=== PATIENT | male | born 1945 | race Caucasian/White ===

== ENCOUNTER 2017-03-22 19:32 | Emergency (ER) | payer MEDICARE ==
[~2017-03-22] VITALS: Ht 198.1 cm; Wt 132.7 kg
--- NOTE | 2017-03-22 19:56 | ED.REPORT ---
HPI-Trauma Minor / Fall Date of Service Mar 22, 2017 ED Provider: Vladimir Cook MD Pt is a 71 year old male with a history of alcohol abuse, DM, hyperlipidemia, lower extremity neuropathy, and HTN who presents to the ED via EMS complaining of right shoulder pain s/p falling onset tonight at the [place] while drinking alcohol. He reports "seeing stars" and losing consciousness prior to the fall. He states he normally has 5 drinks per day for 4 days/week. Additional symptoms include elbow and nose pain. He denies chest pain, SOB, neck pain, abdominal pain, cough, nausea, or vomiting. Pt reports episodes of sudden LE weakness and collapse unrelated to his drinking habits in the past. He takes 5 mg of Lisinopril every morning as his only reported blood pressure medication. Nursing Notes Stated Complaint: GLF AND RT SHOULDER PAIN Nursing Notes Reviewed: Yes Allergies: Coded Allergies: No Known Allergies (Unverified , 03/22/17) General Time Seen by MD: 19:55 Chief Complaint Fall Hx Obtained From: Patient, Spouse Arrived By: Ambulance Onset Occurred: 1 - 4 hours ago Caused by: Fall on ground Location: Shoulder right Quality: Painful Severity: Current: Severe Severity: Maximum: Severe Recent Healthcare: No recent doctor visit, No recent hospitalization Similar Sx Previous: No Past Medical History Past Medical History Reports: Diabetes mellitus, Hyperlipidemia, Hypertension Smoking History Never Smoker Social History Hx of alcohol abuse [place] Alcohol Use: 3-5 per day Other Social History: Good social support Ambulatory Status Independent Review of Systems Elbow pain Shoulder pain Nose pain Respiratory: Denies: Non-productive cough, Prod cough, clear, Shortness of breath Musculoskeletal: Denies: Neck pain Complete sys rev & neg: except as marked. Cardiovascular: Denies: Chest pain GI: Denies: Abdominal pain, Nausea, Vomiting Physical Exam Initial Vital Signs Vital Signs (First) Date Time Temp Pulse Resp B/P Pulse Ox O2 Delivery O2 Flow Rate FiO2 03/22/17 20:02 36.7 113 20 113/72 95 Room Air Initial VS: Reviewed Skin: Warm, Dry, No cyanosis Neurologic: Alert, Oriented, Nonfocal Psychiatric: Mood/affect normal, Behavior normal, Normal thought content General/Constitutional: Awake, Alert Neck: Atraumatic, Supple, Full range of motion Head / Eyes: Atraumatic, Normocephalic Abrasion over forehead Ears/Nose/Throat: Abrasion over nose No crepitus Bones intact Mucus membranes dry Respiratory / Chest: Atraumatic, Breath sounds NL, Breath sounds = bilat, No respiratory distress Cardiovascular: Regular rhythm Tachycardia Heart sounds diminshed Trace lower leg edema Upper Extremity / MS: Full range of motion, No deformity, Neurologic intact, Vascular intact Non-tender L elbow 2 cm laceration over L elbow R shoulder with visible deformity. TTP, unable to examine ROM due to pain. Interpretation & Diagnostics Lab Results Interpretation Result Diagram: 03/22/17201403/22/17 2015 Test 03/22/17 20:15 White Blood Count 4.7th/mm3 (3.8-10.1) Red Blood Count 4.25mil/mm3 (4.40-5.80) Hemoglobin 13.8g/dL (13.8-17.2) Hematocrit 41.0% (41.0-50.0) Mean Corpuscular Volume 96.5fL (81-100) Mean Corpuscular Hemoglobin 32.5pg (27.0-35.0) Mean Corpuscular Hemoglobin Concent 33.7% (32.0-37.0) Red Cell Distribution Width 12.1% (12.3-15.4) Platelet Count 214bil/L (150-400) Neutrophils (%) (Auto) 69.3% (40-74) Lymphocytes (%) (Auto) 16.0% (14-46) Monocytes (%) (Auto) 9.4% (4-12) Eosinophils (%) (Auto) 4.7% (0-5) Basophils (%) (Auto) 0.4% (0-3) Prothrombin Time 9.9sec (8.1-12.5) Prothromb Time International Ratio 0.93ratio Sodium Level 136mEq/L (134-144) Potassium Level 4.4mEq/L (3.5-5.2) Chloride Level 97mEq/L (97-108) Carbon Dioxide Level 19mmol/L (18-29) Blood Urea Nitrogen 22mg/dL (8-27) Creatinine 0.84mg/dL (0.76-1.27) Estimat Glomerular Filtration Rate 96mL/min (>59) Glucose Level 178mg/dL (60-99) Calcium Level 9.2mg/dL (8.5-10.1) Total Bilirubin 0.4mg/dL (0.0-1.2) Aspartate Amino Transf (AST/SGOT) 26U/L (0-50) Alanine Aminotransferase (ALT/SGPT) 23U/L (0-44) Alkaline Phosphatase 78U/L (25-160) Troponin T < 0.010ug/L (0.0-0.011) Total Protein 6.5g/dL (6.4-8.4) Albumin 3.8g/dL (3.4-5.0) Alcohols 170mg/dL (0-10) ECG Interpretation ECG Interpretation: Impression: Sinus tachycardia, rate 106 RBBB and LAFB No acute ST changes No previous available for comparison Time: 20:19 Interpreted by: ED physician X-Ray Chest Interpretation Chest Xray Interpretation: IMPRESSION: No radiographic evidence of acute cardiopulmonary pathology. Partially visualized right shoulder dislocation. Dictated by: Issac Hyatt M.D. on 03/22/2017 at 21:01 View: Portable, 1 view Interpretation / Wet Read by: Interpret - Radiologist X-Ray Interpretation Xray Interpretation: IMPRESSION: Anterior-inferior right shoulder dislocation. No definite associated fractures. Recommend postreduction radiographs. Dictated by: Issac Hyatt M.D. on 03/22/2017 at 21:02 X-Ray Ordered: Shoulder right Interpretation / Wet Read by: Interpret - Radiologist Xray Interpretation: Post-reduction Xray shows successful shoulder reduction X-Ray Ordered: Shoulder right Interpretation / Wet Read by: Wet read ED physician CT Head Interpretation IMPRESSION: No CT evidence of acute intracranial pathology. Dictated by: Issac Hyatt M.D. on 03/22/2017 at 21:31 Study: Head CT no contrast Interpretation / Wet Read by: Interpret - Radiologist CT C-Spine Interpretation IMPRESSION: No CT evidence of acute cervical spine pathology. Extensive degenerative change as described above. Dictated by: Issac Hyatt M.D. on 03/22/2017 at 21:33 Study type: CT no contrast Interpretation / Wet Read by: Interpret - Radiologist Procedures Laceration Management Time: 23:38 Procedure Performed by: ED physician Consent / Setup / Site Prep: Consent from patient, Time-out performed, Hand hygiene observed, Stand sterile technique Location of Wound: 2.5 cm laceration on L elbow Local Anesthesia: Lidocaine w epi 1% Repair Skin: ___ O (2O), Nylon # Sutures - Skin: 2 Suture Technique: Mattress Post-Procedure / Complications: Antibiotic oint applied, Dressing applied, No complications, Condition improved, Tolerated procedure well, Patient stable Proced Mod Sedation/Analgesia Time: 22:34 Procedure Performed by: ED physician Consent / Setup: Consent from patient, Time-out performed, Hand hygiene observed, Stand sterile technique, Head of bed at 30-60 deg Indication: Shoulder reduction Preparation: site monitor applied, Pulse oximeter applied, Constant attendance, IV access established, Supplemental oxygen, Procedure explained, Suction available, End tidal CO2 mon applied Airway Exam: Normal facial anatomy CVS/Resp Exam: Normal breath sounds Neuro Exam: Alert, Responsive Sedation: Sedation: Propofol ASA Classification: 3 sev disease/not incap Response During Procedure: Handled secretions adeq, Maintained airway well, Oxygenation stable, Sedation appropriate, Vital signs stable Complications During/After: None Mental Status After Procedure: Alert, Oriented X3 Post-Procedure: Alert prior to discharge, Ambulatory with assist Attestation: I performed procedure, I performed sedation Reduction Dislocated Shoulder Initial procedure unsuccessful shoulder reduction. Second attempt showed successful reduction, no apparent fracture. Time: 22:34 Procedure Performed by: ED physician Consent / Setup: Consent from patient, Consent from spouse, Time-out performed , Oxygen administered, Pulse oximeter applied, site monitor applied, Hand hygiene observed, Stand sterile technique Procedural Sedation/Analgesia: Sedation: Propofol Which Shoulder and Technique: Right shoulder Neurovascular: Intact pre-procedure, Intact post-procedure Post-Procedure / Complications: Reduced per examination, Procedure successful, Condition improved, Tolerated procedure well, Patient stable Re-Eval/Medical Decision Med Decision/Clinical Course 71 yo intoxicated male here s/p GLF resulting in R shoulder dislocation, significant nasal abrasion and L elbow laceration. Head and neck CTs without acute injury. R shoulder was reduced after uncomplicated conscious sedation on second attempt. Fall was unwitnessed and pt intoxicated however he thinks he may have passed out and does not believe his fall was caused by etoh. Cardiac workup here shows no acute ST changes on EKG and troponin negative. No previous EKG for comparison. Initially pt was mildly tachycardic, but this resolved after fluids and pain medication. I advised pt to f/u with this PCP next week to consider further syncope evaluation possibly including and echocardiogram. No arrhythmias seen here on tele. It is likely that etoh led to all of his sx tonight. Source of Hx: Old records Re-Evaluation/Progress #1: Time of Eval: 22:33 Re-Evaluation/Progress Note: Performed reduction of right shoulder dislocation. Re-Evaluation/Progress #2: Time of Eval: 23:40 Re-Evaluation/Progress Note: Performed laceration management on L elbow. Counseled Regarding: Diagnosis, Lab results, Need for follow-up, When/why to return to ED Discharge & Departure Impression: Primary Impression: Fall from ground level Additional Impressions: Alcohol intoxication Complication of substance-induced condition: with unspecified complication Qualified Code: F10.129 - Alcohol abuse with intoxication, unspecified Dislocation of right shoulder joint Encounter type: initial encounter Qualified Code: S43.004A - Unspecified dislocation of right shoulder joint, initial encounter Laceration of left elbow Encounter type: initial encounter Qualified Code: S51.012A - Laceration without foreign body of left elbow, initial encounter Loss of consciousness Nasal abrasion Encounter type: initial encounter Qualified Code: S00.31XA - Abrasion of nose, initial encounter Tachycardia Disposition: Home Discharge Condition All VS Reviewed: Yes Condition: Stable Additional Instructions: Thank you for entrusting us with your care tonight. Please schedule an appointment on Friday with orthopedics next week. You should wear your shoulder sling until you see orthopedics. Use Neosporin for all of your cuts. Your sutures will need to be removed in two weeks. Keep sutures dry for 24 hours. Use Percocet as needed for shoulder pain. Do not drink alcohol and take Percocet at the same time. Do not drive while taking Percocet. Return to the ER for new or worsening symptoms. Referrals: OTHER,PHYSICIAN (PCP) (Family) Scribe Attestation Portions of this note were transcribed by Jennifer Hutchinson and Amparo Acharay. I, Dr. Cook, personally performed the history, physical exam and medical decision-making; I reviewed and confirmed the accuracy of the information in the transcribed note. Signed by: Betty Lee, 03/22/17. Geovany Cook DO Mar 22, 2017 19:56 Jennifer Hutchinson Mar 22, 2017 20:21 AMPARO ACHARYA Mar 22, 2017 21:44
[2017-03-22] MEDS ORDERED: Ondansetron 2 mg/mL 2 mL Inj IVPUSH PRN (20:00)
[2017-03-22 20:02] VITALS: BP 113/72; PULSE 113; RESP 20; O2SAT 95
[2017-03-22] MEDS: HYDROmorphone 0.5 mg/0.5 mL iSecure Syringe IVPUSH PRN ×4 (20:34→21:42)
[2017-03-22 20:41] LABS: BASOPHILS % (AUTO) 0.4 % (0-3); EOSINOPHILS % (AUTO) 4.7 % (0-5); MONOCYTES % (AUTO) 9.4 % (4-12); Mean Corpuscular Hemoglobin 32.5 pg (27.0-35.0); Mean Corpuscular Volume 96.5 fL (81-100); NEUTROPHILS % (AUTO) 69.3 % (40-74); Platelet Count 214 bil/L (150-400)
[2017-03-22 20:52] LABS: INR 0.93 ratio
[2017-03-22] MEDS ORDERED: 0.9% Sodium Chloride 1,000 ML IV ONE ×2 (20:54→20:55)
--- NOTE | 2017-03-22 21:04 | DRSVH ---
PROCEDURE: X-RAY CHEST ONE VIEW, PORTABLE ([id number]) INDICATIONS: fall TECHNIQUE: One view of the chest was acquired. COMPARISON: None. FINDINGS: Surgical changes and devices: None. Lungs and pleura: No pleural effusions or pneumothorax. Lungs are clear. Mediastinum: Mediastinal contours appear normal. Heart size is normal. Bones and chest wall: Partially visualized right shoulder dislocation.. Overlying soft tissues appea r unremarkable. IMPRESSION: No radiographic evidence of acute cardiopulmonary pathology. Partially visualized right shoulder dislocation. Dictated by: Issac Hyatt M.D. on 03/22/2017 at 21:01 Approved by: Issac Hyatt M.D. on 03/22/2017 at 21:02
--- NOTE | 2017-03-22 21:05 | DRSVH ---
PROCEDURE: X-RAY RIGHT SHOULDER, MINIMUM TWO VIEWS ([id number]) INDICATIONS: fall, r shoulder pain TECHNIQUE: 3 views of the shoulder were acquired. COMPARISON: None. FINDINGS: Bones: Anterior-inferior right shoulder dislocation. No definite associated fractures. Glenohumeral a nd acromioclavicular joint degenerative change. Soft tissues: No suspicious soft tissue calcifications. IMPRESSION: Anterior-inferior right shoulder dislocation. No definite associated fractures. Recommend postreduction radiographs. Dictated by: Issac Hyatt M.D. on 03/22/2017 at 21:02 Approved by: Issac Hyatt M.D. on 03/22/2017 at 21:03
[2017-03-22 21:27] VITALS: BP 113/62; PULSE 111; RESP 18; O2SAT 92
--- NOTE | 2017-03-22 21:35 | DRSVH ---
PROCEDURE: CT BRAIN WITHOUT CONTRAST ([id number]) INDICATIONS: head trauma with LOC, nose pain TECHNIQUE: Noncontrast 4.5 mm thick angled axial sections acquired from the foramen magnum to the vertex, with c oronal reformats. COMPARISON: None. FINDINGS: Image quality: Excellent. CSF spaces: Basal cisterns are patent. No extra-axial fluid collections. Ventricles are normal in size and shape. Brain: No midline shift. No intracranial masses or hemorrhage. Martinez-white matter interface is norm al. Old cerebellar encephalomalacia with associated calcifications. Right basal ganglier lacunar inf arction. Skull and face: Calvarium and visualized facial bones are intact, without suspicious lesions. Sinuses: Visualized sinuses and mastoids are clear. IMPRESSION: No CT evidence of acute intracranial pathology. Dictated by: Issac Hyatt M.D. on 03/22/2017 at 21:31 Approved by: Issac Hyatt M.D. on 03/22/2017 at 21:33
--- NOTE | 2017-03-22 21:37 | DRSVH ---
PROCEDURE: CT CERVICAL SPINE WITHOUT CONTRAST ([id number]) INDICATIONS: head trauma TECHNIQUE: Noncontrast 3 mm thick sections acquired from the skull base to the T4 level. Sagittal and coronal r eformats were then constructed. For radiation dose reduction, the following was used: automated exp osure control, adjustment of mA and/or kV according to patient size. COMPARISON: None. FINDINGS: Image quality: Excellent. Bones: No acute fractures or dislocations. Loss of normal cervical lordosis likely due to patient is muscular spasm. Otherwise normal cervical vertebral alignment. Multilevel intravertebral body disc he ight loss and osteophyte formation is noted age-appropriate degenerative change greatest at C5-7 as w ell as in the upper thoracic spine. Soft tissues: Prevertebral soft tissues are normal in thickness. No paravertebral hematomas. No ap ical pneumothoraces. IMPRESSION: No CT evidence of acute cervical spine pathology. Extensive degenerative change as descri bed above. Dictated by: Issac Hyatt M.D. on 03/22/2017 at 21:33 Approved by: Issac Hyatt M.D. on 03/22/2017 at 21:36
[2017-03-22] MEDS ORDERED: Propofol 10 mg/mL 20 mL Inj IVPUSH ONE (21:40)
[2017-03-22] MEDS ORDERED: Lidocaine 1%-Epi 1:100,000 20 mL Inj ONE (23:39)
[2017-03-23] MEDS ORDERED: _oxyCODONE/APAP 5-325 mg Tablet PO PRN
[2017-03-23 00:15] VITALS: BP 117/65; PULSE 93; RESP 18; O2SAT 97
--- NOTE | 2017-03-23 08:19 | DRSVH ---
PROCEDURE: X-RAY RIGHT SHOULDER, ONE VIEW ([id number]) INDICATIONS: 71 year-old male with anterior shoulder dislocation, status post closed reduction attemp t. TECHNIQUE: Frontal view of the right shoulder acquired. COMPARISON: [facility], CR, XR SHOULDER MIN 2VW RT, 03/22/2017, 20:28. FINDINGS: Bones: There is persistent anterior right humeral head dislocation with respect to the glenoid fossa. There is acromioclavicular joint degeneration. Visualized right ribs are intact. Soft tissues: No suspicious soft tissue calcifications. Visualized right lung is clear. IMPRESSION: Persistent anterior right shoulder dislocation, status post closed reduction attempt. Dictated by: Alvaro Correia M.D. on 03/23/2017 at 8:17 Approved by: Alvaro Correia M.D. on 03/23/2017 at 8:18
--- NOTE | 2017-03-23 08:21 | DRSVH ---
PROCEDURE: X-RAY RIGHT SHOULDER, MINIMUM TWO VIEWS ([id number]) INDICATIONS: 71 year-old male with anterior right shoulder dislocation, status post closed reduction. TECHNIQUE: 2 views of the shoulder were acquired. COMPARISON: [facility], CR, XR SHOULDER 1VW RT, 03/22/2017, 22:31. [facility], CR, XR SHOULDER MIN 2VW RT, 03/22/2017, 20:28. FINDINGS: Bones: Glenohumeral joint is now in anatomic alignment after closed reduction. Moderate acromioclavic ular joint degeneration is again noted. Visualized right ribs appear intact. Soft tissues: No suspicious soft tissue calcifications. IMPRESSION: Successful closed reduction of right anterior shoulder dislocation, with glenohumeral eddie nt now in anatomic alignment. Dictated by: Alvaro Correia M.D. on 03/23/2017 at 8:18 Approved by: Alvaro Correia M.D. on 03/23/2017 at 8:20
== END 2017-03-23 00:27 | disposition home or self-care (01) ==
LOC: EDUNIT# 19:32 → SED 19:32 → EDBD 19:32 → SED 03-23 00:27
DX: S43.084A Other dislocation of right shoulder joint, initial encounter (principal); S51.012A Laceration without foreign body of left elbow, initial encounter; S00.31XA Abrasion of nose, initial encounter; R55 Syncope and collapse; R00.0 Tachycardia, unspecified; F10.129 Alcohol abuse with intoxication, unspecified; W18.39XA Other fall on same level, initial encounter; Y93.89 Activity, other specified; Y92.481 Parking lot as the place of occurrence of the external cause; Y99.8 Other external cause status; E11.40 Type 2 diabetes mellitus with diabetic neuropathy, unspecified; I10 Essential (primary) hypertension; E78.5 Hyperlipidemia, unspecified
CPT/HCPCS: 12001; 23650; 36415; 70450; 71010; 72125; 73020; 73030; 80053; 84484; 85025; 85610; 93005; 94770; 96361; 96374; 96375; 99285; G0480; J1170; J2405; J2704; J7030